=== PATIENT | female | born 1990 | race American Indian/Alaskan Native ===

== ENCOUNTER 2020-01-21 17:10 | Inpatient (IN) | payer OTHER ==
[2020-01-21] MEDS ORDERED: LACTATED RINGERS 1,000 ML ONE (18:32)
--- NOTE | 2020-01-21 18:55 | History and Physical Report ---
History of Present Illness Date of examination: 01/21/20 Date of admission: 01/21/20 17:10 Chief complaint: Pt presents at 39 wks with c/o UC. Pt admits to active FM. History of present illness: 29 y/o G1021 AA female was sent to [facility] for delivery. Pt initiated her pnc at [facility] at 14wks gestation. Pt had an uncomplicated . Med/social, family hx unremarkable. She reports a surgical hx of breast augmentation. GBS neg. Pt was found to be 9/100%/-1 and was admitted to L&D for delivery. Past History Past Medical History: no pertinent history, other (hx UTI) Past Surgical History: breast surgery Family/Genetic History: none Social history: no significant social history, single - Obstetrical History Expected Date of Delivery: 01/28/20 Actual Gestation: 39 Week(s) 0 Day(s) : 4 Para: 1 Hx # Term Pregnancies: 1 Number of Pregnancies: 0 Spontaneous Abortions: 1 Induced : 1 Number of Living Children: 1 Medications and Allergies Allergies Allergy/AdvReac Type Severity Reaction Status Date / Time No Known Allergies Allergy Unverified 01/21/20 17:55 Home Medications Medication Instructions Recorded Confirmed Last Taken Type No Known Home Medications [No 01/21/20 01/21/20 Unknown History Reported Home Medications] Review of Systems All systems: negative Breasts: normal Rectal Exam: deferred - Vital Signs Vital signs: Vital Signs Pulse Pulse Ox 114 H 100 01/21/20 18:00 01/21/20 18:00 Temp Pulse Resp BP Pulse Ox 98.6 F 103 H 135/78 95 01/21/20 18:10 01/21/20 18:30 01/21/20 18:19 01/21/20 18:30 - Physical Exam Breasts: Positive: normal Cardiovascular: Regular rate Lungs: Positive: Clear to auscultation Abdomen: Positive: normal appearance, soft, normal bowel sounds, other (GRAVID) Genitourinary (Female): Positive: normal external genitalia, normal perenium Vulva: both: normal Vagina: Positive: normal moisture Uterus: Positive: normal size, normal contour, other (GRAVID) Adnexa: both: normal Anus/Rectum: Positive: normal perianal skin Extremities: Positive: normal - Obstetrical FHR: auscultation normal, category 1 Uterine Contraction Monitor Mode: External Cervical Dilatation: 9 (PER NURSE) Cervical Effacement Percentage: 100 (PER NURSE) station: -1 Uterine Contraction Pattern: Regular Uterine Tone Measurement Phase: Resting Uterine Contraction Intensity: Strong/Firm Results All other labs normal. Assessment and Plan A: IUP @ 39 wks GBS neg CAT I FHT P: Admit to L&D Anticipate - Patient Problems (1) Supervision of normal IUP (intrauterine ) in multigravida Current Visit: Yes Status: Acute
[2020-01-21 19:23] LABS: Hematocrit 34.7 % (30.3-42.9); Hemoglobin 11.4 gm/dl (10.1-14.3); Mean Corpuscular HGB Conc 33 % (30-34); Mean Corpuscular Volume 84 fl (79-97); Platelet Count 248 K/mm3 (140-440); Red Blood Count 4.14 M/mm3 (3.65-5.03); Red Cell Distribution Width 15.5 % (13.2-15.2)
[2020-01-21] MEDS ORDERED: LIDOCAINE (2%) 20 MG/1 ML VIAL 20 ML MDV INFILTRATI ONE ×2 (19:43→20:21)
[2020-01-21] MEDS ORDERED: OXYTOCIN 20 UNIT/1000ML DRIP 40,000 MILLIUNITS/2,000 ML BAG IV ONE (19:43)
[2020-01-21] MEDS ORDERED: MINERAL OIL 30 ML ORAL LIQD ONE (19:43)
[2020-01-21] MEDS ORDERED: LACTATED RINGERS 1,000 ML IV SCH ×2 (20:00→21:00)
[2020-01-21] MEDS ORDERED: fentaNYL 100 MCG/2 ML INJ IV PRN (20:21)
[2020-01-21] MEDS ORDERED: MINERAL OIL 30 ML ORAL LIQD PO PRN (20:21)
[2020-01-21] MEDS ORDERED: TERBUTALINE 1 MG/1 ML INJ IVP PRN (20:21)
[2020-01-21] MEDS ORDERED: ePHEDrine SULFATE 50 MG/1 ML INJ IV PRN (20:21)
[2020-01-21] MEDS ORDERED: TERBUTALINE 1 MG/1 ML INJ SUB-Q PRN (20:21)
[2020-01-21] MEDS ORDERED: OXYTOCIN 20 UNIT/1000ML DRIP 20 UNITS/1,000 ML BAG IV SCH (21:00)
[2020-01-21] MEDS ORDERED: OXYTOCIN DRIP 30 UNITS/500 ML BAG IV SCH (21:00)
[2020-01-21] MEDS ORDERED: miSOPROStol 200 MCG TAB ONE (21:48)
[2020-01-21] MEDS ORDERED: METHYLERGONOVINE MALEATE 0.2 MG/ML VIAL IM ONE (22:04)
--- NOTE | 2020-01-21 22:47 | Procedure Note ---
OB Delivery Note - Vaginal Delivery presentation: vertex Delivery position: OA Delivery induction: none Delivery augmentation: rupture of membranes Delivery monitor: external FHT, external uterine Route of delivery: Delivery placenta: spontaneous Delivery cord: 3 umbilical vessels Episiotomy: none Delivery laceration: none Anesthesia: none Delivery comments: Called to for delivery. SVE 10/ 100%/+1 and pt was pushing. of live via ble male infant in OA position. Spontaneous delivery of 's head. Shoulders were delivered with pt in Nicolasa position while nurse applied s/p pressure r/t pt's poor pushing effort. was immediately placed on mom's chest for bonding. Delayed cord clamping x 90 sec then cord was doubled clamped and FOB was allowed to cut the cord, afterwards infant was given to awaiting NICU nurse for an initial asses. 8/9. Spon delivery of intact placenta with CVX3. After delivery of placenta, pt's fundus was firm @ U1 with IV Pitocin and fundal massage. Minutes latter pt's fundus became boggy and a constant trickle of vag bleeding was noted. An exploration of tears revealed none. Homeostasis was maintained with 800mcg of cytotec NC and Methergine 0.2 mg IM x 1. Dr Lance was notified of pt's condition and MD presented to see the pt. EBL 350cc. Mom and baby stable. wt 3591 Gms. - Infant A at 1 minute: 8 at 5 minutes: 9 Infant Gender: Male ( WT 3591 GMS)
[2020-01-21] MEDS ORDERED: WITCH HAZEL/ GLYCERIN PAD TP PRN (22:50)
[2020-01-21] MEDS ORDERED: ONDANSETRON 4 MG/2 ML INJ IV PRN (22:50)
[2020-01-21] MEDS ORDERED: diphenhydrAMINE 25 MG CAP PO PRN (22:50)
[2020-01-21] MEDS ORDERED: PROMETHAZINE 25 MG RECT SUPP PR PRN (22:50)
[2020-01-21] MEDS ORDERED: PROMETHAZINE 25 MG TAB PO PRN (22:50)
[2020-01-21] MEDS ORDERED: MAGNESIUM HYDROXIDE (MOM) ORAL LIQD UDC PO PRN (22:50)
[2020-01-21] MEDS ORDERED: LANOLIN/ZINC/DIMETHICONE (LANSINOH) 7 GM TP PRN (22:50)
[2020-01-21] MEDS ORDERED: ACETAMINOPHEN 325 MG TAB PO PRN (22:50)
[2020-01-22 01:40] LABS: Hematocrit 30.2 % (30.3-42.9); Hemoglobin 9.8 gm/dl (10.1-14.3)
[2020-01-22] MEDS: IBUPROFEN 600 MG TAB PO SCH ×4 (05:15→23:55)
--- NOTE | 2020-01-22 17:03 | Progress Note ---
Assessment and Plan - Patient Problems (1) Status post normal vaginal delivery Current Visit: Yes Status: Acute Plan to address problem: Continue routine PP orders Anticipate d/c home tomorrow (2) Anemia Current Visit: Yes Status: Acute Qualifiers: Anemia type: other cause Other causes of anemia: acute posthemorrhagic Qualified Code(s): D62 - Acute posthemorrhagic anemia Plan to address problem: Asymptomatic Increase iron rich foods into diet Subjective - Subjective Date of service: 01/22/20 Principal diagnosis: S/P ; PPD#1 Interval history: See admission H & P, OB delivery summary and progress notes Patient reports: appetite normal, voiding normally, pain well controlled, flatus, ambulating normally [place]: doing well, bottle feeding Objective - Vital Signs Latest vital signs: Vital Signs Temp Pulse Resp BP BP Pulse Ox 01/22/20 12:05 98.4 F 100 H 18 111/67 01/22/20 08:12 97.9 F 111 H 18 130/67 01/22/20 04:30 98.6 F 78 18 104/76 01/21/20 23:57 99.3 F 103 H 20 115/63 98 01/21/20 23:17 96 H 113/57 01/21/20 23:02 101 H 111/58 01/21/20 23:00 98.8 F 01/21/20 22:48 106 H 110/55 01/21/20 22:37 109 H 107/53 01/21/20 22:18 120 H 116/56 01/21/20 22:03 115 H 22 121/55 01/21/20 21:48 112 H 117/57 01/21/20 20:54 104 H 123/56 01/21/20 19:31 99 H 117/70 01/21/20 19:30 98.6 F 01/21/20 19:26 84 89 01/21/20 19:25 93 H 98 01/21/20 19:20 94 H 95 01/21/20 19:19 93 H 94 01/21/20 19:15 95 H 75 L 01/21/20 19:11 100 H 92 01/21/20 19:10 104 H 96 01/21/20 19:05 96 H 95 01/21/20 19:04 107 H 93 01/21/20 19:00 99 H 90 01/21/20 18:59 87 91 01/21/20 18:55 97 H 94 01/21/20 18:51 97 H 91 01/21/20 18:50 105 H 96 01/21/20 18:46 91 H 94 01/21/20 18:45 97 H 94 01/21/20 18:40 102 H 97 01/21/20 18:35 93 H 97 01/21/20 18:30 103 H 95 01/21/20 18:26 101 H 87 01/21/20 18:25 103 H 97 01/21/20 18:20 99 H 97 01/21/20 18:19 102 H 135/78 01/21/20 18:18 32 L 81 L 01/21/20 18:15 100 H 99 01/21/20 18:10 98.6 F 105 H 99 01/21/20 18:05 106 H 99 01/21/20 18:00 114 H 100 Intake and Output 01/22/20 01/22/20 01/22/20 07:59 15:59 23:59 Intake Total 300 560 Output Total 1000 Balance -700 560 Intake: Oral 560 Intake, Free Water 300 Output: Urine 1000 Void 1000 Other: Total, Intake Amount 320 Total, Output Amount 400 # Voids Void 1 1 - Exam Breasts: Present: normal Cardiovascular: Present: Regular rate Lungs: Present: Normal air movement Abdomen: Present: soft Uterus: Present: firm, fundal height below umbilicus (U-2) Extremities: Present: normal Deep Tendon Reflex Grade: Normal +2 - Labs Labs: Abnormal lab results 01/21/20 01/22/20 Range/Units 17:55 01:06 Hgb 9.8 L (10.1-14.3) gm/dl Hct 30.2 L (30.3-42.9) % MCH 27 L (28-32) pg RDW 15.5 H (13.2-15.2) %
--- NOTE | 2020-01-22 17:09 | Discharge Summary ---
Providers - Providers Date of Admission: 01/21/20 17:10 Date of discharge: 01/23/20 (1000) Attending physician: OLIVIER ENRIQUE JR, MD Primary care physician: OLIVIER ENRIQUE JR, MD Hospitalization Reason for admission: active labor Delivery: Episiotomy: none Laceration: none Other procedures: none complications: none Discharge diagnosis: IUP at term delivered, other (anemia) baby: male Hospital course: See admission H & P, OB delivery summary and progress notes Condition at discharge: Good Disposition: DC-01 TO HOME OR SELFCARE - Discharge Diagnoses (1) Status post normal vaginal delivery Status: Acute (2) Anemia Status: Acute Qualifiers: Anemia type: other cause Other causes of anemia: acute posthemorrhagic Qualified Code(s): D62 - Acute posthemorrhagic anemia Plan - Provider Discharge Summary Activity: routine, no sex for 6 weeks, no heavy lifting 4 weeks, no strenuous exercise Diet: other (Iron rich diet) Additional instructions: [] Smoking cessation referral if applicable(refer to patient education folder for contact #) [] Refer to [facility] Booklet Call your doctor immediately for: * Fever > 100.5 * Heavy vaginal bleeding ( >1 pad per hour) * Severe persistent headache * Shortness of breath * Reddened, hot, painful area to leg or breast - Follow up plan Follow up: OLIVIER ENRIQUE JR, MD [Primary Care Provider] - 6 Weeks
[2020-01-23] MEDS: IBUPROFEN 600 MG TAB PO SCH (06:07)
[2020-01-23 14:22] VITALS: BP 104/65
== END 2020-01-23 15:40 | disposition home or self-care (01) | DRG 806 ==
LOC: LD 17:10 → OB 01-22 00:17
PROVIDERS: ADMIT Obstetrics & Gynecology; ATTEND Obstetrics & Gynecology
PROC: 10E0XZZ Delivery of Products of Conception, External Approach (ICD-10-PCS; principal; 2020-01-21)
DX: O99.02 Anemia complicating childbirth (principal); D62 Acute posthemorrhagic anemia; Z37.0 Single live birth; Z3A.39 39 weeks gestation of pregnancy
CPT/HCPCS: 36415; 59025; 85014; 85018; 85027; 86850; 86900; 86901; 96374; G0378; J2210; J2590; J3010; J7120